=== PATIENT | male | born 1985 | race African-American/Black ===

== ENCOUNTER 2019-04-13 21:29 | Emergency (ER) | payer SELFPAY ==
[2019-04-13 21:30] VITALS: BP 148/85; PULSE 110; RESP 14; TEMP 36.3; O2SAT 98; BMI 32.3
--- NOTE | 2019-04-13 21:56 | RAD_ITS ---
HISTORY: left elbow pain after fall 3 months ago Comparison:None Findings: 3 views of the left elbow. No acute fracture distal humerus, proximal radius or proximal ulna. No evidence of an elbow joint effusion. Bony alignment is normal. RAD/Elbow min 3 Views IMPRESSION: No radiographic abnormality of left elbow. at 2209 Reported and signed by: Lalo Agosto MD Electronically Signed: Lalo Agosto MD at 22:08 EDT Tel , Service support ,
--- NOTE | 2019-04-13 22:25 | ED.DCSUM_ITS ---
- ER Visit Summary Date of Service: 04/13/19 Chief Complaint: [Injury to left elbow] History of Present Illness: The patient is a 34 M [presents to the emergency department with complaint of pain to his left elbow. Patient states that he had a fall about [address] about 2 months ago. Patient states that he sustained lacerations over the area of the elbow and had a lot of discomfort for about a month before it healed up. Patient did not seek medical attention at that time. Patient continues to have discomfort to the left elbow and presents for evaluation. Patient states that he tends to bump it from time to time and sometimes feels like something is moving in the elbow and is wondering if something did not heal right.] Physical Examination: [HEENT-PERRLA, EOMI. Cranial nerves II through XII grossly intact. TMs clear. Mucous membranes moist. No adenopathy. Cardiovascular-regular rate and rhythm without murmur or ectopy Lungs-clear to auscultation, chest wall stable without crepitus or subcu emphysema Abdomen-normoactive bowel sounds, soft, nontender, no rebound or rigidity, no peritoneal signs. Extremities-intact ?4, normal range of motion, normal pulses, atraumatic area left elbow-patient has tenderness over the olecranon on palpation. There is no ecchymosis or bruising noted. Patient has normal range of motion of flexion- extension at the elbow. Neurovascular intact distally.] Test Results: [X-rays of the left elbow obtained were read as normal.] Emergency Department Course and Treatment: [] Treatment Plan: [Advised to use ibuprofen or Tylenol for discomfort. Patient will be given referral to orthopedics for follow-up if his pain persists.] Disposition: [Discharged home stable condition.] Impression: [Left elbow pain-etiology uncertain] This note was generated with [employer] software. It may contain incorrect words, spelling, and punctuation that were not noted in review of the chart prior to signing ED Disposition - Plan for ED Patient: Referrals: Care Physician,No Primary [Primary Care Provider] -
--- NOTE | 2019-04-13 22:28 | ED.DEP ---
ED Disposition - Plan for ED Patient: Instructions: CONTUSION, Upper Extremity Prescriptions: Naproxen [Naprosyn] 500 mg PO BID PRN #20 tab Prescription Printed Referrals: Care Physician,No Primary [Primary Care Provider] - Jamin Sena DO [STAFF PHYSICIAN] - As Needed
== END 2019-04-13 22:42 | disposition home or self-care (01) ==
LOC: ED 22:14
PROVIDERS: Emergency Provider Emergency Medicine
DX: M25.522 Pain in left elbow (principal); W19.XXXA Unspecified fall, initial encounter; Y93.9 Activity, unspecified; Y92.410 Unspecified street and highway as the place of occurrence of the external cause
CPT/HCPCS: 73080; 99282